=== PATIENT | female | born 1960 | race Caucasian/White ===

== ENCOUNTER 2017-05-06 18:30 | Observation (INO) | payer BC ==
[2017-05-06] MEDS ORDERED: Oxycodone/Acetaminophen 5/325 mg Tab PO STA (19:52)
--- NOTE | 2017-05-06 20:16 | ED PDOC ---
Lower Extremity Pain/Injury Time Seen by Provider: 05/06/17 18:38 Chief Complaint (Nursing): Lower Extremity Problem/Injury Chief Complaint (Provider): Left ankle pain History Per: Patient History/Exam Limitations: no limitations Onset/Duration Of Symptoms: Mins Current Symptoms Are (Timing): Still Present Severity: Severe Pain Scale Rating Of: 9 Additional Complaint(s): Patient is a 57 y/o female who presents with left ankle injury sustained this evening. States she was boarding a train in [facility] when she tripped and fell, injuring the left ankle. Patient immediately noticed pain and swelling , and was unable to bear weight or ambulate. Patient reports bystanders helped carry her onto the train and upon arriving in [place], EMS was called. Pain is rated as severe, 9/10, and localized to the left ankle and christians[place]. Otherwise: (-) numbness, (-) tingling, (-) knee pain (-) head injury (-) LOC. PMD: Dr. Rey Past Medical History Reviewed: Historical Data, Nursing Documentation, Vital Signs Vital Signs: Last Vital Signs Temp 97.1 F L 05/06/17 18:36 Pulse 70 05/06/17 18:36 Resp 16 05/06/17 18:36 BP 157/86 H 05/06/17 18:36 Pulse Ox 100 05/06/17 18:36 - Medical History PMH: HTN - Surgical History Surgical History: No Surg Hx - Family History Family History: States: Unknown Family Hx - Social History Alcohol: None Drugs: Denies - Allergies Allergies/Adverse Reactions: Allergies Allergy/AdvReac Type Severity Reaction Status Date / Time No Known Allergies Allergy Verified 05/06/17 18:36 Review of Systems ROS Statement: Except As Marked, All Systems Reviewed And Found Negative Musculoskeletal: Positive for: Other (left ankle pain and swelling; unable to bear weight) Neurological: Negative for: Numbness (and tingling), Other (head trauma or LOC) Physical Exam - Reviewed Nursing Documentation Reviewed: Yes Vital Signs Reviewed: Yes - Physical Exam Comments: GENERAL APPEARANCE: Patient is awake, alert, oriented x 3, in painful distress. Tearful. SKIN: Warm, dry; (-) cyanosis. LOWER EXTREMITY: Ankle: (+) tenderness to the distal aspect of left fibula, medial malleolus, and lateral malleolus; (+) moderate effusion of left ankle; (+ ) No range of motion of left ankle secondary to pain. (-) ecchymosis; (-) erythema; (-) skin break. Knee and foot: (-) injury. Neurovascularly intact. Capillary refill < 2 sec at all toes of left foot. VASCULAR: (+) distal pulse 2+ bilaterally NEUROLOGIC: (+) distal sensation. RESPIRATORY: lungs clear to auscultation bilaterally with equal breath sounds CARDIAC: (-) murmur - ECG O2 Sat by Pulse Oximetry: 100 (RA) Pulse Ox Interpretation: Normal Medical Decision Making Medical Decision Making: Clinical Impression: Acute ankle pain/effusion, probable ankle fracture s/p fall Time: 18:46 Initial Plan: * X-ray left ankle * Percocet 1 tab PO * Zofran 4 mg PO * Reevaluation XR L ANKLE: (+) possible medial malleolus avulsion fracture with widening of mortise (-) no dislocation, as read by PA. 19:47 CT of left lower extremity ordered W/O contrast due to patient's clinical presentation and exam. 2200 CT reviewed and resulted below: EXAM: CT Left Lower Extremity Without Intravenous Contrast, Tibia and Fibula CLINICAL HISTORY: 57 years old, female; Injury or trauma; Fall; Initial encounter; Fracture, traumatic; Closed fracture; Fibula and tibia and ankle; Left; Not specified; Bone in left fibula fracture not specified; Bone in left tibia fracture not specified; Injury date: 05-06-2017; Additional info: Pain S/P fall TECHNIQUE: Axial computed tomography images of the left tibia and fibula without intravenous contrast. All CT scans at this facility use one or more dose reduction techniques, viz.: automated exposure control; ma/kV adjustment per patient size (including targeted exams where dose is matched to indication; i.e. head); or iterative reconstruction technique. Coronal and sagittal reformatted images were created and reviewed. COMPARISON: No relevant prior studies available. FINDINGS: Bones/joints: Nondisplaced oblique fracture medial malleolus. Tiny ossicle or avulsion fracture along medial malleolus. Nondisplaced vertical fracture posterior malleolus. Minimally displaced oblique fracture proximal fibular diaphysis. No dislocation. Slight widening medial gutter of ankle mortise. Soft tissues: Soft tissue swelling/stranding about proximal fibula and ankle. IMPRESSION: 1. Tibial and fibular fractures. Thank you for allowing us to participate in the care of your patient. Dictated and Authenticated by: Radhames Diamond MD 05/06/2017 9:58 PM Eastern Time ([place] & Bill) 221 On re-evaluation, patient reports minor improvement of pain and currently ranks it 7/10. On exam, patient remains AAOx3, neck is supple, lungs CTA, cardiac RRR , neuro exam shows no focal findings. Sensation to affected lower extremity intact. 2+ pulses present. Ice applied throughout ED visit. Diagnostic results d /w the patient in great detail. Dx of trimalleolar fracture d/w the patient. Morphine 4mg ordered for additional pain control prior to splinting. VSS. Podiatry consulted. 2219 Spoke with podiatry, Dr Antonia Servin DPM. Will see patient in ED. 00:00 Patient placed in posterior short leg splint by podiatry. NV intact after placement, pain well controlled. Per Dr Servin's consultation with ortho, Dr Maradiaga, patient is to be admitted to observation on med/surg for ORIF in the morning. Consult placed to charissa Rain general merchandise salesperson. [address] Verde, who is agreeable to admission. Pre-op labs placed. EKG and chest XR ordered. Arrangements made for admission; further disposition and care per Dr Verde. Scribe Attestation: Documented by Rachna Salazar, acting as a scribe for Elvia Astorga PA-C Provider Scribe Attestation: All medical record entries made by the Scribe were at my direction and personally dictated by me. I have reviewed the chart and agree that the record accurately reflects my personal performance of the history, physical exam, medical decision making, and the department course for this patient. I have also personally directed, reviewed, and agree with the discharge instructions and disposition. Disposition - Clinical Impression Clinical Impression: Trimalleolar fracture of ankle, closed, Ankle pain - Patient ED Disposition Is Patient to be Admitted: Yes Counseled Patient/Family Regarding: Studies Performed, Diagnosis - Disposition Disposition Time: 00:11 Condition: FAIR - Pt Status Changed To: Hospital Disposition Of: Observation - POA Present On Arrival: None
[2017-05-06] MEDS ORDERED: Oxycodone/Acetaminophen 5/325 mg Tab ONE (20:26)
--- NOTE | 2017-05-06 21:59 | CT ---
EXAM: CT Left Lower Extremity Without Intravenous Contrast, Tibia and Fibula CLINICAL HISTORY: 57 years old, female; Injury or trauma; Fall; Initial encounter; Fracture, traumatic; Closed fracture; Fibula and tibia and ankle; Left; Not specified; Bone in left fibula fracture not specified; Bone in left tibia fracture not specified; Injury date: 05-06-2017; Additional info: Pain S/P fall TECHNIQUE: Axial computed tomography images of the left tibia and fibula without intravenous contrast. All CT scans at this facility use one or more dose reduction techniques, viz.: automated exposure control; ma/kV adjustment per patient size (including targeted exams where dose is matched to indication; i.e. head); or iterative reconstruction technique. Coronal and sagittal reformatted images were created and reviewed. COMPARISON: No relevant prior studies available. FINDINGS: Bones/joints: Nondisplaced oblique fracture medial malleolus. Tiny ossicle or avulsion fracture along medially malleolus. Nondisplaced vertical fracture posterior malleolus. Minimally displaced oblique fracture proximal fibular diaphysis. No dislocation. Slight widening medial gutter of ankle mortise. Soft tissues: Soft tissue swelling/stranding about proximal fibula and ankle. IMPRESSION: 1. Tibial and fibular fractures.
[2017-05-06] MEDS ORDERED: Morphine 5 MG/ML SYRINGE IM STA (22:14)
[2017-05-06] MEDS ORDERED: Morphine 4 MG/ML VIAL ONE (22:16)
[2017-05-06] MEDS ORDERED: Morphine 4 MG/ML VIAL IM STA (22:33)
--- NOTE | 2017-05-06 23:24 | CP.PCM.CON ---
History of Present Illness - History of Present Illness History of Present Illness: Orthopedic Consult Note - Dr. Maradiaga 57 y/o female with PMHx of HTN seen in ED for complaints of left ankle pain. Pt states she slipped when getting onto a train platform approx 6 hours ago. States she immediately felt significant pain and was unable to bear weight. Denies numbness, tingling or burning. States she came straight here following her injury. She states that her pain is well controlled with Morphine at this time. Denies F/C/N/V/CP/SOB. PSHx: appendectomy (1969) All: NKDA Social Hx: denies EtOH, cigarette or illicit drug use Family Hx: admits to family hx of hypertension and heart disease Review of Systems - Review of Systems All systems: reviewed and no additional remarkable complaints except (per HPI) Past Patient History - Past Social History Smoking Status: Never Smoked - CARDIAC Hx Hypertension: Yes - PSYCHIATRIC Hx Substance Use: No Meds Allergies/Adverse Reactions: Allergies Allergy/AdvReac Type Severity Reaction Status Date / Time No Known Allergies Allergy Verified 05/06/17 18:36 Physical Exam - Constitutional Appears: Well, Non-toxic, No Acute Distress - Extremities Exam Additional comments: Left ower extremity focused examination: Vascular: DP/PT pulses palpable 2/4. Temperature gradient warm to warm from proximal to distal. Localized non-pitting pedal edema noted to medial and posterior aspect of left ankle. CFT < 3 sec to all digits Derm: No erythema, no ecchymosis, no fracture blisters, no open lesions, skin and soft tissue intact Neuro: Protective sensation grossly intact Ortho: Moderate tenderness to palpation of proximal fibula at level of fibular neck/proximal shaft. Moderate tenderness to palpation of medial malleolus. Pt able to perform light active ankle dorsiflexion, limited due to guarding. Tenderness elicited upon passive ankle dorsiflexion. - Neurological Exam Neurological exam: Alert, Oriented x3 - Psychiatric Exam Psychiatric exam: Normal Affect, Normal Mood Results - Vital Signs Recent Vital Signs: Last Vital Signs Temp 97.1 F L 05/06/17 18:36 Pulse 70 05/06/17 18:36 Resp 16 05/06/17 18:36 BP 157/86 H 05/06/17 18:36 Pulse Ox 100 05/06/17 22:27 Assessment & Plan - Assessment and Plan (Free Text) Assessment: 57 y/o female with left medial and posterior malleolar fractures, left proximal fibular fracture, and widening of left ankle mortise Plan: Pt seen and evaluated in ED Discussed with attending Dr. Maradiaga X-rays of left ankle reveal widening of ankle mortise Left lower extremity CT reviewed, reveals high fibular diaphyseal fracture, medial malleolar fracture and posterior malleolar fracture with widening of ankle mortise Posterior splint applied to left lower extremity Pt dispensed crutches and advised to remain non weight-bearing to the LLE Pt to be admitted to hospital for pain management and surgical intervention NPO past midnight Pt to go to OR tomorrow for left ankle and proximal fibular fracture ORIF Ortho service will continue to follow patient while in house
[2017-05-07 00:52] LABS: BASO # 0.2 K/uL (0.0-0.2); BASO % 1.6 % (0.0-2.0); EOS % 0.2 % (0.0-4.0); HEMOGLOBIN 13.4 g/dL (12.0-16.0); LYMPH # 2.5 K/uL (1.0-4.3); LYMPH % 20.6 % (20.0-40.0); MEAN CELL VOLUME 89.6 fl (81.0-99.0); MEAN CORPUSCULAR HEMOGLOBIN 30.9 pg (27.0-31.0); MEAN CORPUSCULAR HGB CONC 34.5 g/dL (33.0-37.0); MEAN PLATELET VOLUME 10.7 fl (7.2-11.7); MONO # 0.5 K/uL (0.0-0.8); MONO % 4.5 % (0.0-10.0); NEUT # 8.7 K/uL (1.8-7.0); NEUT % 73.1 % (50.0-75.0); NRBC % 0.3 % (0.0-0.0); RBC 4.34 Mil/uL (3.80-5.20); WHITE BLOOD COUNT 11.9 K/uL (4.8-10.8)
[2017-05-07 01:04] LABS: ALB/GLOB RATIO 1.4 (1.0-2.1); ALBUMIN 4.2 g/dL (3.5-5.0); ALT/SGPT 73 U/L (9-52); AST/SGOT 35 U/L (14-36); BLOOD UREA NITROGEN 8 mg/dl (7-17); CALCIUM 9.5 mg/dL (8.4-10.2); GFR AFRICAN-AMERICAN > 60; GFR NON-AFRICAN AMERICAN > 60
[2017-05-07 01:06] LABS: PARTIAL THROMBOPLASTIN TIME 27.3 Seconds (25.6-37.1); PROTHROMBIN TIME 11.1 Seconds (9.8-13.1)
--- NOTE | 2017-05-07 07:27 | RAD ---
HISTORY: pre-op COMPARISON: No prior. TECHNIQUE: Chest PA and lateral FINDINGS: LUNGS: No active pulmonary disease. PLEURA: No significant pleural effusion identified. No pneumothorax apparent. CARDIOVASCULAR: Normal. OSSEOUS STRUCTURES: No significant abnormalities. VISUALIZED UPPER ABDOMEN: Normal. OTHER FINDINGS: None. IMPRESSION: No acute cardiopulmonary disease appreciated.
[2017-05-07] MEDS ORDERED: Bacitracin Ointment 30 GM TUBE ONE (07:38)
--- NOTE | 2017-05-07 08:14 | RAD ---
PROCEDURE: Left Ankle Radiographs. HISTORY: pain s/p fall COMPARISON: None FINDINGS: BONES: A tiny chip or avulsion fracture is questioned off the inferior margins of the medial malleolus. There is also some widening of the medial mortise in question and narrowing of the lateral mortise. Lateral malleolus appears intact as well as the dome of the talus. JOINTS: As above. SOFT TISSUES: Mild medial malleolar soft tissue edema identified. OTHER FINDINGS: None. IMPRESSION: Tiny chip or avulsion fracture related to the inferior margins of the medial malleolus is in question with alteration of the mortise suggesting medial widening and lateral narrowing. Further clinical correlation is advised. Mild medial malleolar soft tissue edema noted.
[2017-05-07] MEDS ORDERED: Propofol 10 mg/ml Inj (20 ML) ONE (10:11)
[2017-05-07] MEDS ORDERED: Succinylcholine 200 mg/10 ml Inj IV ONE (10:12)
[2017-05-07] MEDS ORDERED: Lidocaine 4% (Laryng-O-Jet) Kit MM ONE (10:12)
[2017-05-07] MEDS ORDERED: Rocuronium 10 mg/ml (5 ml) ONE ×2 (10:12→11:52)
[2017-05-07] MEDS ORDERED: Bupivacaine HCl/Epi 0.5% 1:20000 30 ML SOL IJ ONE (10:16)
[2017-05-07] MEDS ORDERED: Midazolam 2 MG/2 ML VIAL ONE (10:45)
[2017-05-07] MEDS ORDERED: Lactated Ringer's 1,000 ML IV ONE (10:45)
[2017-05-07] MEDS ORDERED: Dexamethasone 4 mg/1 ml ONE (11:11)
--- NOTE | 2017-05-07 11:31 | CARD ---
APPROVED REPORT EKG Measurement Heart [id number] MD [id number] <Conclusion> Normal sinus rhythm Normal ECG
[2017-05-07] MEDS ORDERED: Desflurane Inhalation Anesthetic Liq (240 ml) ONE (11:46)
[2017-05-07] MEDS ORDERED: Phenylephrine 10 mg/ml Inj ONE (11:49)
--- NOTE | 2017-05-07 12:15 | HP ---
HISTORY OF PRESENT ILLNESS: Ms. Ram is a 57-year-old female who sustained injury to her left ankle while trying to board a train in [place] [employer] [facility]. She tripped and fell and injured her left ankle. She was brought to the Emergency Room because of swelling and pain in her left ankle and is scheduled for orthopedic intervention to repair the damaged left ankle. She had x-rays done in the Emergency Room that were remarkable for avulsion fracture related to the inferior margins of the medial malleolus. CT scan of lower extremity is remarkable for tibial and fibular fractures. PAST MEDICAL HISTORY: She has a past medical history of hypertension, controlled on medication at home. FAMILY HISTORY: Unremarkable. SOCIAL HISTORY: Does not smoke or drink and lives at home with her . REVIEW OF SYSTEMS: Essentially unremarkable. PHYSICAL EXAMINATION: GENERAL: The patient is alert and oriented, appears to be in some distress because of pain. VITAL SIGNS: Blood pressure 125/68 with the pulse of 76 and respiratory rate of 20. She is afebrile. O2 sat 95% on room air. SKIN: Shows fair turgor. HEENT: Pupils are equal and reactive to light and accommodation. Mouth shows fair hygiene. LUNGS: Clear. HEART: Regular. No murmurs or gallops. ABDOMEN: Soft and nontender. No organomegaly. EXTREMITIES: Brace in place over the left lower extremity. The patient is able to move toes. Right lower extremity appears unremarkable. There is also tenderness in left lower extremity. LABORATORY DATA: WBC 11.9, hemoglobin 13.4, and platelet count 230,000. Sodium 140, potassium 4.0, BUN 8, creatinine 0.5, and serum glucose 116. PT 11.1 and INR 1.0. Chest x-ray shows no active cardiopulmonary disease. EKG official report pending, but reviewed by me shows normal sinus rhythm. IMPRESSION: Fractured left lower extremity, history of hypertension, and accidental fall. PLAN: The patient is medically cleared for surgery with Dr. Awan for repair of left foot and ankle fracture. Bladimir Verde MD
[2017-05-07] MEDS ORDERED: HYDROmorphone 0.5 mg/0.5 ml ISec IVP PRN (13:33)
--- NOTE | 2017-05-07 13:37 | PCM.ANESB3 ---
Femoral Nerve Block - Femoral Nerve Block Date of Procedure: 05/07/17 Anesthesiologist: Sumaya Pre-Procedure Diagnosis: Left ankle fracture Post-Procedure Diagnosis: Same Procedure Performed: Femoral Nerve Block Left - Procedure Femoral Nerve Block: The procedure was explained to the patient that it is for the post-operative pain management. Consent was obtained after a thorough discussion with the patient regarding the benefits and possible complications of local anesthetic block of the femoral nerve at the inguinal crease area. The patient was brought to the operating room and standard monitors were applied. Time-out was held with the circulating nurse to confirm the correct surgery and the appropriate block. Under general anesthesia, patient was placed in supine position with fully extended lower extremities and the ___left groin exposed. The femoral artery was then carefully palpated. The ultrasound transducer was then applied to this area in the transverse plane and the femoral nerve was visualized lateral to the femoral artery and underneath the fascia iliaca. After thorough identification, the inguinal crease area was prepped with Chloraprep. At this point, a #22 gauge Stimuplex 2-inch needle was inserted immediately lateral to the femoral artery pulse at the inguinal crease and advanced perpendicularly. The needle was inserted to the ultrasound transducer in-plane towards the femoral nerve in a [id number] direction. Needle advancement was performed carefully under direct ultrasound visualization. Nerve stimulator was used and twitch of the quadriceps muscle was obtained at current of __0.4___ MA. After negative aspiration, __2___cc of __0.5___% __bupivicaine with 1:200, 000 epinephrine was injected and this was followed with ___8__ _ cc of __0.5 % ___bupivicaine with 1:200,000 epinephrine . Under ultrasound guidance the local anesthetics were observed spreading below fascia iliaca and around the femoral nerve. The needle was removed intact. The patient tolerated the femoral nerve block well with stable vital signs and was prepared for subsequent surgery.
[2017-05-07] MEDS ORDERED: Oxycodone/Acetaminophen 5/325 mg Tab PO PRN ×2 (13:38)
--- NOTE | 2017-05-07 13:40 | PCM.ANESB2 ---
Popliteal Nerve Block - Popliteal Nerve Block Date of Procedure: 05/07/17 Anesthesiologist: Sumaya Pre-Procedure Diagnosis: Left ankle fracture Post-Procedure Diagnosis: Same Procedure Performed: Popliteal Nerve Block Left - Procedure Popliteal Nerve Block: This procedure was explained to the patient that it is for post-operative pain management. Consent was obtained after a thorough discussion with the patient regarding the benefits and possible complications of local anesthetic block of the sciatic nerve at the popliteal level. The patient was brought to the operating room and standard monitors are applied. Time-out was held with the circulating nurse to confirm the correct surgery and the appropriate block. Under general anesthesia, patient's operative leg was gently raised and supported and the groove in between the biceps femoris and vastus lateralis muscles was carefully palpated. The skin approximately 8cm above the popliteal crease was then marked. The ultrasound transducer was then applied to the posterior thigh approximately 8cm above the popliteal crease in the transverse plane and the sciatic nerve before its division was visualized lateral to the popliteal artery and in between the bicep femoris and semimembranosus/ semitendinosus muscles. After identification, the lateral portion of the thigh was prepped with Chloraprep. At this point, a # 21 gauge Stimuplex insulated 4 inch needle was inserted into pre-marked area and advanced in a perpendicular direction. The needle was inserted above the ultrasound transducer in-plane towards the sciatic nerve in a [id number] direction. Needle advancement was performed carefully under direct ultrasound visualization. Nerve stimulator was used and flexion of the toes of the __left___ foot was elicited at a current of __0.4___ MA. After repeated negative aspiration, __2___cc of __0.5___ % ___bupivicaine with 1:200, 000 epinephrine was injected and this was flowed with __18____ cc of ___0.5___% ___bupivicaine with 1:200,000 epinephrine . Under ultrasound guidance the local anesthetics were observed surrounding sciatic nerve . The needle was removed intact. The patient tolerated the popliteal nerve block well with stable vital signs and was subsequently prepared for the surgery.
--- NOTE | 2017-05-07 13:41 | PCM.SURG1 ---
Surgeon's Initial Post Op Note - Surgeon's Notes Surgeon: Ashwini Contact Center Agent: CUCA Padilla Type of Anesthesia: General Endo, Spinal, Block Regional, Local Anesthesia Administered By: Dr Cristino Doan Pre-Operative Diagnosis: Syndesmotic ligament rupture L anle. displaced medial malleolus fracture. posterior malleolar fracture. oblique prximal fibula( Maissoneueve fracture) Operative Findings: as above Post-Operative Diagnosis: as above Operation Performed: Openreduction/internal fixation displaced medial malleolar fracture. open reduction internal fixation syndesmotic ligament rupture. closed reduction proximal fibula fx. closed redcution posterior malleolar fx. applx posterior splint. positionoing of fluor/interpreation of video images Specimen/Specimens Removed: N/a Estimated Blood Loss: EBL {In ML}: 5 Blood Products Given: N/A Drains Used: No Drains Post-Op Condition: Good Date of Surgery/Procedure: 05/07/17 Time of Surgery/Procedure: 12:50 (time in mroom /anaesthesia indcution time 1045 )
--- NOTE | 2017-05-07 16:29 | RAD ---
PROCEDURE: Intraoperative Fluoroscopy. HISTORY: LT ANKLE FINDINGS: Fluoroscopic assistance was provided for open reduction internal fixation. Please refer to the operative report from YUAN Harris. Total fluoroscopic time (continuous mode) utilized during the procedure: 20.4 seconds.
[2017-05-07] MEDS: Lactated Ringer's 1,000 ML IV SCH ×2 (16:46→22:45)
--- NOTE | 2017-05-07 16:50 | OP ---
PROCEDURE DATE: 05/07/2017 PREOPERATIVE DIAGNOSES: 1. Syndesmotic ligament rupture, left ankle. 2. Displaced medial malleolar fracture. 3. Posterior malleolar fracture. 4. Oblique proximal fibular fracture (Maisonneuve fracture). OPERATIVE FINDINGS: 1. Syndesmotic ligament rupture, left ankle. 2. Displaced medial malleolar fracture. 3. Posterior malleolar fracture. 4. Oblique proximal fibular fracture (Maisonneuve fracture). POSTOPERATIVE DIAGNOSES: 1. Syndesmotic ligament rupture, left ankle. 2. Displaced medial malleolar fracture. 3. Posterior malleolar fracture. 4. Oblique proximal fibular fracture (Maisonneuve fracture). OPERATION PERFORMED: 1. Open reduction internal fixation of displaced medial malleolus fracture. 2. Open reduction internal fixation of syndesmotic ligament rupture with TightRope fixation. 3. Closed reduction of proximal fibula fracture. 4. Closed reduction of posterior malleolar fracture. 5. Allograft bone grafting to the fibula. 6. Application of posterior splint. SPECIMENS: No specimens. ESTIMATED BLOOD LOSS: 5 mL. SURGEON: Sarath Maradiaga MD BRUSH AND BROOM CLIPPER: Nikkie Mccoy, certified registered nursing bankruptcy assistant. SECOND ASSISTANTS: 1. Antonia Servin DPM, PGY-1 resident 2. Lilli Ratliff DPM, resident, PGY-1 BLOOD PRODUCTS: No blood products given. DRAINS: No drains. POSTOPERATIVE CONDITION: Stable. TIME OF SURGERY: Incision time 12:50. Time in the room and anesthesia induction time 10:45. OPERATIVE INDICATIONS: Adeline Ram is a 57-year-old woman who sustained a slip and fall injury at [facility]. The patient presented to the Emergency Room at [facility], was evaluated and evaluation rendered medial malleolar fracture, syndesmotic ligament rupture, posterior malleolar fracture, and oblique proximal fibular fracture. The patient is admitted. Posterior splint had been applied. Pros, cons, risks, and benefits of surgical approach were discussed with the patient whose Romanian is perfect. The patient is Indian in descent. Possibility of mechanical failure, infection, thromboembolic disease, possibility of secondary or tertiary surgery is discussed. Possibility of ankle stiffness is discussed. The possibility of delayed healing is discussed. Possibility of bone grafting is discussed. OPERATIVE PROCEDURE: After having obtained informed consent in the above fashion, after having identified side, site and procedure and critical pause/time-out, after the satisfactory induction of the anesthetic, the patient identified as Adeline Hovannesian in the supine position with all bony prominences well padded, the left lower extremity was prepped and free draped in the usual fashion for lower extremity surgery. The tourniquet had been applied but was not yet inflated. After exsanguinating the limb using a 6-inch Esmarch bandage, the tourniquet, which had been applied, was inflated to 350 mmHg. Under the surgeon's direction, the fluoroscope was positioned, video images were generated, therapeutic decisions were made therefrom. It should be noted this is a very treacherous fracture because on the AP x-ray in recovery, very little was in evidence. CT scan examination was accomplished and the 3-D reconstruction on extensive medial malleolar fracture with displacement and a posterior malleolus fracture and proximal fibula fracture, there was evidence of syndesmotic ligament rupture. The medial malleolus was first to be addressed. The fixation is mandatory because of the displacement and rotation of the fracture. Please refer to the CT reconstruction. With the knee flexed in a mild figure four position with the ankle dorsiflexed, an incision was described superficial to the medial malleolus extending two fingerbreadths proximal and in-line with the navicular tuberosity. The skin incision was carried down through the skin and subcutaneous tissue. Hemostasis was controlled with electrocautery. Stay sutures were placed. The deltoid ligament is found to be intact. The fracture was found to be in evidence, but displaced and a bit rotated. The fracture at this point in time was identified. Using #15 blade, periosteum was elevated. The fracture site was identified and curetted of healing callus. This having been accomplished, the healing callus having been curetted, the fracture was reduced anatomically and held with a towel clip bone holding clamp. Percutaneous 4.0 cancellous screws were employed. Two wires were introduced. Drilling was accomplished with the appropriate size, 2.5 drill bit followed by measurement and the two cannulated cancellous screws were employed, short thread. The fixation was found to be excellent. The wound was thoroughly irrigated. Verification of position is offered on AP and lateral image intensification views. Attention was now turned to the syndesmotic reconstruction. The patient has a positive Cotton test, which is a balance test exhibiting instability of the malleolus. It should be noted that there is a proximal fibular fracture as well. This having been accomplished, an incision was described 2 cm above the joint line. Skin incision was carried down through the skin and subcutaneous tissue. The incision was carried down to the periosteum. The bare area was identified. The K-wire was placed and above the preexisting medial malleolar screws, this having been accomplished, drilling was accomplished and the TightRope is introduced through the four cortical drill holes that had been employed and the needle was brought out medially. The TightRope was brought out medially. The pin was flipped on the medial aspect of the tibia. Verification of position was offered. This having been accomplished with the bankruptcy assistant offering dorsiflexion of the ankle with the knee in flexion so as not to encourage a contracture of the ankle, the TightRope was fixated by cinching the TightRope device with reduction of the syndesmosis having been accomplished. This having been accomplished, the wound was thoroughly irrigated. Closed reduction of the posterior malleolar fragment was accomplished and closed reduction of the proximal fibula fracture was accomplished both with manipulation. Verification of position was offered on image intensification views. This having been accomplished, closures in layers on the medial aspect, 0 Vicryl, 2-0 Vicryl, ani for skin, 0 Vicryl, 2-0 Vicryl and ani on the lateral side as well. Urbano Barry compression dressing and well-padded posterior splint was applied with the ankle in 90 degrees of dorsiflexion with the knee flexed. This also mobilized the proximal fibula, so closed reduction of the proximal fibula fracture was accomplished, closed reduction of the posterior malleolar fracture of the tibia had been accomplished by manipulation as well. Urbano Reddy compression dressing and posterior splint in the appropriate attitude is applied. Sarath Maradiaga MD
--- NOTE | 2017-05-08 07:54 | CP.PCM.PN ---
Subjective - Date & Time of Evaluation Date of Evaluation: 05/08/17 Time of Evaluation: 07:51 - Subjective Subjective: Patient states pain is well controlled. Says she has 10 step to get into house, and that bedroom is on second floor. Denies CP/SOB/dizziness. Objective - Vital Signs/Intake and Output Vital Signs (last 24 hours): Temp Pulse Resp BP Pulse Ox 98.6 F 85 18 105/63 96 05/08/17 03:37 05/08/17 03:37 05/08/17 03:37 05/08/17 03:37 05/08/17 03:37 - Medications Medications: Current Medications Acetaminophen (Tylenol 325mg Tab) 650 mg PO Q4 PRN PRN Reason: Pain, Mild (1-3) Lactated Ringer's (Lactated Ringer's) 1,000 mls @ 100 mls/hr IV .Q10H RADHA Last Admin: 05/07/17 22:45 Dose: 100 mls/hr Morphine Sulfate (Morphine) 2 mg IVP Q6 PRN PRN Reason: Pain, severe (8-10) Oxycodone/Acetaminophen (Percocet 5/325 Mg Tab) 1 tab PO Q4 PRN PRN Reason: Pain, moderate (4-7) Stop: 05/10/17 13:39 Oxycodone/Acetaminophen (Percocet 5/325 Mg Tab) 2 tab PO Q4 PRN PRN Reason: Pain, severe (8-10) Stop: 05/10/17 13:39 - Labs Labs: 05/07/17 00:40 05/07/17 00:40 PT 11.1 Seconds (9.8-13.1) 05/07/17 00:40 INR 1.0 (0.9-1.2) 05/07/17 00:40 APTT 27.3 Seconds (25.6-37.1) 05/07/17 00:40 - Extremities Exam Additional comments: LLE: +ROM toes, decreased senstion to toes/1st dorsal web space (s/p block), toes warm, good cap refill, elevated, splint intact Assessment and Plan (1) Trimalleolar fracture of ankle, closed Assessment & Plan: POD#1 s/p Left ankle ORIF -orthopedically stable -PT -elevation -VTE proph -plan d/c home if patient tolerates crutch ambulation with PT -d/w , agrees with above Status: Acute
[2017-05-08 08:06] VITALS: TEMP 98.2
[2017-05-08 10:22] LABS: HEMOGLOBIN 13.1 g/dL (12.0-16.0); MEAN CELL VOLUME 89.8 fl (81.0-99.0); MEAN CORPUSCULAR HEMOGLOBIN 30.8 pg (27.0-31.0); MEAN CORPUSCULAR HGB CONC 34.2 g/dL (33.0-37.0); RBC 4.27 Mil/uL (3.80-5.20); WHITE BLOOD COUNT 16.1 K/uL (4.8-10.8)
[2017-05-08 10:46] LABS: BLOOD UREA NITROGEN 10 mg/dl (7-17); CALCIUM 9.6 mg/dL (8.4-10.2); GFR AFRICAN-AMERICAN > 60; GFR NON-AFRICAN AMERICAN > 60
--- NOTE | 2017-05-08 13:19 | CP.PCM.DIS ---
Provider - Provider Date of Admission: 05/07/17 00:11 Attending physician: Bladimir Verde MD Time Spent in preparation of Discharge (in minutes): 30 Diagnosis - Discharge Diagnosis (1) Hypertension Status: Acute (2) Ankle pain Status: Acute (3) Trimalleolar fracture of ankle, closed Status: Acute Hospital Course - Lab Results Lab Results: Most Recent Lab Values WBC 16.1 K/uL (4.8-10.8) H 05/08/17 10:12 RBC 4.27 Mil/uL (3.80-5.20) 05/08/17 10:12 Hgb 13.1 g/dL (12.0-16.0) 05/08/17 10:12 Hct 38.4 % (34.0-47.0) 05/08/17 10:12 MCV 89.8 fl (81.0-99.0) 05/08/17 10:12 MCH 30.8 pg (27.0-31.0) 05/08/17 10:12 MCHC 34.2 g/dL (33.0-37.0) 05/08/17 10:12 RDW 13.0 % (11.5-14.5) 05/08/17 10:12 Plt Count 223 K/uL (130-400) 05/08/17 10:12 MPV 10.7 fl (7.2-11.7) 05/07/17 00:40 Neut % (Auto) 73.1 % (50.0-75.0) 05/07/17 00:40 Lymph % (Auto) 20.6 % (20.0-40.0) 05/07/17 00:40 [place] % (Auto) 4.5 % (0.0-10.0) 05/07/17 00:40 Eos % (Auto) 0.2 % (0.0-4.0) 05/07/17 00:40 Baso % (Auto) 1.6 % (0.0-2.0) 05/07/17 00:40 Neut # (Auto) 8.7 K/uL (1.8-7.0) H 05/07/17 00:40 Lymph # (Auto) 2.5 K/uL (1.0-4.3) 05/07/17 00:40 [place] # (Auto) 0.5 K/uL (0.0-0.8) 05/07/17 00:40 Eos # (Auto) 0.0 K/uL (0.0-0.7) 05/07/17 00:40 Baso # (Auto) 0.2 K/uL (0.0-0.2) 05/07/17 00:40 PT 11.1 Seconds (9.8-13.1) 05/07/17 00:40 INR 1.0 (0.9-1.2) 05/07/17 00:40 APTT 27.3 Seconds (25.6-37.1) 05/07/17 00:40 Sodium 142 mmol/l (132-148) 05/08/17 10:12 Potassium 3.9 MMOL/L (3.6-5.0) 05/08/17 10:12 Chloride 100 mmol/L (98-107) 05/08/17 10:12 Carbon Dioxide 27 mmol/L (22-30) 05/08/17 10:12 Anion Gap 19 (10-20) 05/08/17 10:12 BUN 10 mg/dl (7-17) 05/08/17 10:12 Creatinine 0.6 mg/dl (0.7-1.2) L 05/08/17 10:12 Est GFR ( Amer) > 60 05/08/17 10:12 Est GFR (Non-Af Amer) > 60 05/08/17 10:12 Random Glucose 126 mg/dL (65-105) H 05/08/17 10:12 Calcium 9.6 mg/dL (8.4-10.2) 05/08/17 10:12 Total Bilirubin 0.4 mg/dl (0.2-1.3) 05/07/17 00:40 AST 35 U/L (14-36) 05/07/17 00:40 ALT 73 U/L (9-52) H 05/07/17 00:40 Alkaline Phosphatase 68 U/L (38-126) 05/07/17 00:40 Total Protein 7.3 G/DL (6.3-8.2) 05/07/17 00:40 Albumin 4.2 g/dL (3.5-5.0) 05/07/17 00:40 Globulin 3.1 gm/dL (2.2-3.9) 05/07/17 00:40 Albumin/Globulin Ratio 1.4 (1.0-2.1) 05/07/17 00:40 Blood Type A POSITIVE 05/07/17 00:40 Blood Type Confirm A POSITIVE 05/07/17 01:53 Antibody Screen Negative 05/07/17 00:40 BBK History Checked No verified bt 05/07/17 00:40 - Hospital Course Hospital Course: s/p surgical repair of l foot/ankle fracture Discharge Exam - Head Exam Head Exam: ATRAUMATIC, NORMAL INSPECTION, NORMOCEPHALIC - Eye Exam Eye Exam: EOMI, Normal appearance, PERRL Pupil Exam: NORMAL ACCOMODATION, PERRL - GI/Abdominal Exam GI & Abdominal Exam: Normal Bowel Sounds - Rectal Exam Rectal Exam: NORMAL INSPECTION - Extremities Exam Extremities exam: tenderness Additional comments: l foot/ankle tenderness--surgical dressing in place - Neurological Exam Neurological exam: Alert, CN II-XII Intact, Normal Gait, Oriented x3, Reflexes Normal - Psychiatric Exam Psychiatric exam: Normal Affect, Normal Mood - Skin Skin Exam: Dry, Intact, Normal Color, Warm Discharge Plan - Follow Up Plan Condition: FAIR Disposition: HOME/ ROUTINE Patient education suggested?: Yes Instructions: Ankle Fracture (DC) Additional Instructions: follow up with your primary MD 7-10 days. Referrals: Sarath Maradiaga III, MD [Staff Provider] -
[2017-05-08 13:56] VITALS: BP 147/72; PULSE 67; RESP 18; O2SAT 95
== END 2017-05-08 14:15 | disposition home or self-care (01) ==
LOC: H.ER 18:30 → H.ERHOLD 05-07 00:11 → H.MEDSURG1 05-07 03:35
PROVIDERS: ADMIT Internal Medicine Pulmonary Disease; ATTEND Internal Medicine Pulmonary Disease
DX: S82.852A Displaced trimalleolar fracture of left lower leg, initial encounter for closed fracture (principal); S93.491A Sprain of other ligament of right ankle, initial encounter; V81.4XXA Person injured while boarding or alighting from railway train or railway vehicle, initial encounter; Y92.522 Railway station as the place of occurrence of the external cause; S82.862A Displaced Maisonneuve's fracture of left leg, initial encounter for closed fracture; I10 Essential (primary) hypertension
CPT/HCPCS: 27766; 27768; 27781; 27848; 27899; 36415; 71046; 73610; 73700; 80048; 80053; 85025; 85027; 85610; 85730; 86850; 86900; 93005; 96372; 97116; 97161; 99285; C1713; C1769; G0378; G8978; G8979; G8980; J0330; J0690; J1100; J2001; J2250; J2270; J2370; J2405; J2704; J2765; J3010; J7030; J7120